=== PATIENT | female | born 1965 | race African-American/Black ===

== ENCOUNTER 2016-05-20 23:56 | Observation (INO) | payer OTHER ==
[~2016-05-20] VITALS: Ht 177.8 cm; Wt 148.1 kg
[~2016-05-20 23:56] MED LIST: AMLODIPINE BESY10 MG PO; ASPIR-LOW81 MG PO; CITALOPRAM HBR20 MG PO; CYCLOBENZAPRINE10 MG PO; IBUPROFEN600 MG PO; LISINOPRIL40 MG PO; METOPROLOL SUC100 MG PO; NITROSTAT0.4 MG SL; OXYCODONE HCL10 MG PO; PROTONIX40 MG PO; RISPERDAL1 MG PO; TRAZODONE HCL150 MG PO; VOLTAREN50 MG PO
[2016-05-21 01:33] LABS: HEMATOCRIT 38.2 % (36.0-46.0); MCHC 32.5 G/DL (30.0-36.0); MCV 89.3 FL (83-99); MEAN PLAT.VOLUME 11.2 uM^3 (9.5-12.4); PLATELET COUNT 224 K/uL (156-360); RBC DIS.WIDTH-SD 42.5 % (39-53); RED BLOOD COUNT 4.28 M/uL (3.80-5.20); WHITE BLOOD COUNT 6.2 K/uL (4.1-10.2)
[2016-05-21 01:44] LABS: CHLORIDE 107 mEq/L (99-109); POTASSIUM 3.8 mEq/L (3.7-5.4); SODIUM 141 mEq/L (136-147)
[2016-05-21 01:45] LABS: GLUCOSE 90 mg/dL (70-99)
[2016-05-21 01:47] LABS: ANION GAP 10 MEQ/L (2-14)
[2016-05-21 01:49] LABS: GFR ESTIMATE (CALCULATED) > 59 mL/min/
[2016-05-21 01:50] LABS: UREA NITROGEN (BUN) 13 mg/dL (9-23)
[2016-05-21 01:55] LABS: TROP-I INTERPRETATION NEGATIVE; TROPONIN-I < 0.01 ng/mL (0.0-0.30)
[2016-05-21 07:10] VITALS: BP 109/70
[2016-05-21 10:11] LABS: Estimated Average Glucose 94 mg/dL (70-123); HEMOGLOBIN A1c (GLYCOHEMOGLOB) 4.9 % HGB (Below 5.7)
[2016-05-21 10:18] LABS: TROP-I INTERPRETATION NEGATIVE; TROPONIN-I < 0.01 ng/mL (0.0-0.30)
[2016-05-21 10:30] LABS: HDL CHOLESTEROL 43 MG/DL (Desirable>=50); LDL CHOLESTEROL 91 mg/dL (Desirable<100); NON-HDL CHOLESTEROL 102 mg/dL (Desirable<160); TOTAL CHOLESTEROL 145 mg/dL (Desirable<200); TRIGLYCERIDES 57 MG/DL (Normal: <150)
[2016-05-21] MEDS ORDERED: GABAPENTIN400 MG PO (11:08)
[2016-05-21] MEDS ORDERED: PANTOPRAZOLE SO40 MG PO (11:08)
[2016-05-21] MEDS ORDERED: OXYCODONE HCL10 MG PO (11:10)
[2016-05-21] MEDS ORDERED: LIDOCAINE HCL35 GM TP (11:11)
[2016-05-21 12:09] VITALS: BP 107/59
[2016-05-21] MEDS ORDERED: ASPIR-LOW81 MG PO (14:29)
[2016-05-21] MEDS ORDERED: IMDUR30 MG PO (14:29)
[2016-05-21] MEDS ORDERED: PRAVASTATIN SOD40 MG PO (14:29)
[2016-05-21 14:32] LABS: TROP-I INTERPRETATION NEGATIVE; TROPONIN-I < 0.01 ng/mL (0.0-0.30)
== END 2016-05-21 15:41 | disposition home or self-care (01) ==
LOC: EME → EDBD 23:56 → EME 23:56 → EDOF 05-21 05:17 → 5WEST 05-21 06:51
PROVIDERS: Internal Medicine
DX: R07.89 Other chest pain (principal); I25.10 Atherosclerotic heart disease of native coronary artery without angina pectoris; I25.2 Old myocardial infarction; I10 Essential (primary) hypertension; E66.01 Morbid (severe) obesity due to excess calories; G89.29 Other chronic pain; M54.9 Dorsalgia, unspecified; Z91.19 Patient's noncompliance with other medical treatment and regimen; M19.90 Unspecified osteoarthritis, unspecified site; Z68.42 Body mass index [BMI] 45.0-49.9, adult
CPT/HCPCS: 71020; 80048; 80061; 83036; 84484; 85027; 93005; 99281; 99285; G0378; J1644; J2270; J7030

== ENCOUNTER 2016-06-08 20:19 | Emergency (ER) | payer OTHER ==
[~2016-06-08] VITALS: Ht 177.8 cm; Wt 143.2 kg
[~2016-06-08 20:19] MED LIST changes: +GABAPENTIN400 MG PO; +IMDUR30 MG PO; +LIDOCAINE HCL35 GM TP; +PANTOPRAZOLE SO40 MG PO; +PRAVASTATIN SOD40 MG PO
[2016-06-09] MEDS ORDERED: PATANOL OP100 DROP/5 RIGHT EYE (00:07)
[2016-06-09] MEDS ORDERED: CIPROFLOXACIN H10 ML RIGHT EYE (00:08)
[2016-06-09 00:14] VITALS: BP 128/89
== END 2016-06-09 00:23 | disposition home or self-care (01) ==
LOC: EME 20:19 → EXP 20:19
DX: H10.9 Unspecified conjunctivitis (principal); I10 Essential (primary) hypertension; J45.909 Unspecified asthma, uncomplicated
CPT/HCPCS: 99281; 99284

== ENCOUNTER 2016-07-17 15:32 | Observation (INO) | payer OTHER ==
[~2016-07-17] VITALS: Ht 177.8 cm; Wt 143.3 kg
[~2016-07-17 15:32] MED LIST changes: +CIPROFLOXACIN H10 ML RIGHT EYE; +PATANOL OP100 DROP/5 RIGHT EYE
[2016-07-17 16:51] LABS: HEMATOCRIT 41.7 % (36.0-46.0); MCHC 32.6 G/DL (30.0-36.0); MCV 88.9 FL (83-99); MEAN PLAT.VOLUME 10.3 uM^3 (9.5-12.4); PLATELET COUNT 270 K/uL (156-360); RBC DIS.WIDTH-CV 12.7 % (11.8-14.6); RBC DIS.WIDTH-SD 41.8 % (39-53); RED BLOOD COUNT 4.69 M/uL (3.80-5.20); WHITE BLOOD COUNT 5.6 K/uL (4.1-10.2)
[2016-07-17 17:00] LABS: CHLORIDE 107 mEq/L (99-109); POTASSIUM 3.7 mEq/L (3.7-5.4); SODIUM 142 mEq/L (136-147)
[2016-07-17 17:01] LABS: GLUCOSE 83 mg/dL (70-99)
[2016-07-17 17:03] LABS: ANION GAP 12 MEQ/L (2-14)
[2016-07-17 17:05] LABS: GFR ESTIMATE (CALCULATED) > 59 mL/min/
[2016-07-17 17:06] LABS: UREA NITROGEN (BUN) 8 mg/dL (9-23)
[2016-07-17 17:11] LABS: TROP-I INTERPRETATION NEGATIVE; TROPONIN-I < 0.01 ng/mL (0.0-0.30)
[2016-07-17 18:25] LABS: D-DIMER ELISA 0.79 mg/L FEU (< 0.57)
[2016-07-17] MEDS ORDERED: ADULT LOW DOSE81 M1 PO (19:28)
[2016-07-17 21:56] VITALS: BP 137/91
[2016-07-17 23:43] VITALS: BP 138/86
[2016-07-18 00:05] LABS: TROP-I INTERPRETATION NEGATIVE; TROPONIN-I < 0.01 ng/mL (0.0-0.30)
[2016-07-18 05:04] VITALS: BP 130/80
[2016-07-18 05:56] LABS: HEMATOCRIT 34.8 % (36.0-46.0); MCH 29.1 PG (29.0-34.0); MCHC 32.5 G/DL (30.0-36.0); MCV 89.7 FL (83-99); MEAN PLAT.VOLUME 10.4 uM^3 (9.5-12.4); PLATELET COUNT 217 K/uL (156-360); RBC DIS.WIDTH-CV 12.9 % (11.8-14.6); RED BLOOD COUNT 3.88 M/uL (3.80-5.20); WHITE BLOOD COUNT 4.6 K/uL (4.1-10.2)
[2016-07-18 06:25] LABS: TROP-I INTERPRETATION NEGATIVE; TROPONIN-I < 0.01 ng/mL (0.0-0.30)
[2016-07-18 06:45] LABS: CHLORIDE 108 MEQ/L (99-109); GFR ESTIMATE (CALCULATED) > 59 mL/min/; GLUCOSE 83 mg/dL (70-99); POTASSIUM 3.8 MEQ/L (3.7-5.4); SODIUM 141 MEQ/L (136-147); UREA NITROGEN (BUN) 9 mg/dL (9-23)
[2016-07-18 06:46] LABS: ALKALINE PHOSPHATASE 80 IU/L (3-129); ANION GAP 10 MEQ/L (2-14); SAMPLE HEMOLYSIS CHECK 0; SAMPLE ICTERIC CHECK 0; SAMPLE LIPEMIA CHECK 0
[2016-07-18 07:37] VITALS: BP 127/84
[2016-07-18 10:14] VITALS: BP 98/58
== END 2016-07-18 11:25 | disposition home or self-care (01) ==
LOC: EME 15:32 → EDOF 20:01 → 5WEST 20:01
PROVIDERS: Emergency Medicine; Internal Medicine
DX: R07.9 Chest pain, unspecified (principal); I10 Essential (primary) hypertension; I25.10 Atherosclerotic heart disease of native coronary artery without angina pectoris; E66.01 Morbid (severe) obesity due to excess calories; Z68.42 Body mass index [BMI] 45.0-49.9, adult; E11.9 Type 2 diabetes mellitus without complications; R94.31 Abnormal electrocardiogram [ECG] [EKG]; R06.02 Shortness of breath; M79.602 Pain in left arm; I25.2 Old myocardial infarction; K21.9 Gastro-esophageal reflux disease without esophagitis; F31.9 Bipolar disorder, unspecified; J45.909 Unspecified asthma, uncomplicated; R74.8 Abnormal levels of other serum enzymes; G89.29 Other chronic pain; M54.9 Dorsalgia, unspecified; Z79.4 Long term (current) use of insulin; E78.00 Pure hypercholesterolemia, unspecified
CPT/HCPCS: 71020; 71275; 80048; 80053; 84484; 85027; 85379; 93005; 99281; 99285; G0378; J1644

== ENCOUNTER 2016-08-27 00:22 | Inpatient (IN) | payer OTHER ==
[~2016-08-27] VITALS: Ht 177.8 cm; Wt 145.1 kg
[~2016-08-27 00:22] MED LIST changes: +ADULT LOW DOSE81 M1 PO
[2016-08-27 01:17] LABS: HEMATOCRIT 38.7 % (36.0-46.0); MCH 29.3 PG (29.0-34.0); MCHC 32.8 G/DL (30.0-36.0); MCV 89.4 FL (83-99); MEAN PLAT.VOLUME 10.5 uM^3 (9.5-12.4); PLATELET COUNT 236 K/uL (156-360); RBC DIS.WIDTH-CV 12.7 % (11.8-14.6); RBC DIS.WIDTH-SD 41.9 % (39-53); RED BLOOD COUNT 4.33 M/uL (3.80-5.20); WHITE BLOOD COUNT 7.4 K/uL (4.1-10.2)
[2016-08-27 01:30] LABS: CHLORIDE 110 mEq/L (99-109); SODIUM 141 mEq/L (136-147)
[2016-08-27 01:31] LABS: GLUCOSE 87 mg/dL (70-99)
[2016-08-27 01:33] LABS: ANION GAP 11 MEQ/L (2-14); D-DIMER ELISA 1.08 mg/L FEU (< 0.57); INTER. NORMALIZED RATIO 1.1; PROTHROMBIN TIME 10.8 (9.2-11.2); PTT 27.5 (25-32)
[2016-08-27 01:35] LABS: GFR ESTIMATE (CALCULATED) > 59 mL/min/
[2016-08-27 01:36] LABS: UREA NITROGEN (BUN) 10 mg/dL (9-23)
[2016-08-27 01:37] LABS: POTASSIUM 4.9 mEq/L (3.7-5.4)
[2016-08-27 01:40] LABS: TROP-I INTERPRETATION NEGATIVE; TROPONIN-I < 0.01 ng/mL (0.0-0.30)
[2016-08-27 07:18] VITALS: BP 117/69
[2016-08-27 09:42] LABS: TROP-I INTERPRETATION NEGATIVE; TROPONIN-I < 0.01 ng/mL (0.0-0.30)
[2016-08-27 13:00] VITALS: BP 113/77
[2016-08-27 15:11] LABS: TROP-I INTERPRETATION NEGATIVE; TROPONIN-I < 0.01 ng/mL (0.0-0.30)
[2016-08-27] MEDS ORDERED: ZOLOFT50 MG PO (17:07)
[2016-08-27 17:08] VITALS: BP 103/64
[2016-08-27 19:16] VITALS: BP 119/79
[2016-08-27 23:51] VITALS: BP 117/76
[2016-08-28 03:33] VITALS: BP 116/73
[2016-08-28 06:37] LABS: EOSINOPHIL (%) 3.2 % (0-5); EOSINOPHIL COUNT 0.2 K/uL (0-0.3); HEMATOCRIT 36.5 % (36.0-46.0); IMMATURE GRANULOCYTE (%) 0.4 % (0.0-0.7); INSTRUMENT ABS NEUTROPHIL CT 2.5 K/uL; LYMPHOCYTE COUNT 1.9 K/uL (1.0-2.8); MCH 28.9 PG (29.0-34.0); MCHC 32.3 G/DL (30.0-36.0); MCV 89.5 FL (83-99); MEAN PLAT.VOLUME 10.6 uM^3 (9.5-12.4); MONOCYTE (%) 9.9 % (3-12); MONOCYTE COUNT 0.5 K/uL (0-0.8); NEUTROPHIL (%) 49.1 % (45-76); NEUTROPHIL COUNT 2.5 K/uL (1.8-6.4); PLATELET COUNT 214 K/uL (156-360); RBC DIS.WIDTH-CV 13.1 % (11.8-14.6); RBC DIS.WIDTH-SD 42.9 % (39-53); RED BLOOD COUNT 4.08 M/uL (3.80-5.20); WHITE BLOOD COUNT 5.1 K/uL (4.1-10.2)
[2016-08-28 07:21] LABS: ANION GAP 7 MEQ/L (2-14); CHLORIDE 109 MEQ/L (99-109); GFR ESTIMATE (CALCULATED) > 59 mL/min/; GLUCOSE 98 mg/dL (70-99); SAMPLE HEMOLYSIS CHECK 0; SAMPLE ICTERIC CHECK 0; SAMPLE LIPEMIA CHECK 0; SODIUM 141 MEQ/L (136-147); UREA NITROGEN (BUN) 10 mg/dL (9-23)
[2016-08-28 07:22] LABS: POTASSIUM 3.7 MEQ/L (3.7-5.4)
[2016-08-28 07:41] VITALS: BP 125/72
[2016-08-28] MEDS ORDERED: FLEXERIL5 MG PO (13:01)
[2016-08-28 13:04] VITALS: BP 127/81
[2016-08-28] MEDS ORDERED: ATORVASTATIN CA80 MG PO (15:01)
[2016-08-28] MEDS ORDERED: NITROSTAT0.4 MG SL (15:01)
[2016-08-28] MEDS ORDERED: METOPROLOL TART25 MG PO (15:02)
[2016-08-28 16:05] VITALS: BP 117/76
[2016-08-28 21:00] VITALS: BP 121/79
[2016-08-28 23:52] VITALS: BP 110/78
[2016-08-29 04:02] VITALS: BP 116/78
[2016-08-29 07:18] VITALS: BP 120/78
[2016-08-29 07:49] LABS: HEMATOCRIT 35.5 % (36.0-46.0); MCH 29.6 PG (29.0-34.0); MCV 89.9 FL (83-99); PLATELET COUNT 205 K/uL (156-360); RBC DIS.WIDTH-CV 12.9 % (11.8-14.6); RBC DIS.WIDTH-SD 42.5 % (39-53); RED BLOOD COUNT 3.95 M/uL (3.80-5.20); WHITE BLOOD COUNT 4.9 K/uL (4.1-10.2)
[2016-08-29 08:13] LABS: ANION GAP 8 MEQ/L (2-14); CHLORIDE 108 MEQ/L (99-109); GFR ESTIMATE (CALCULATED) > 59 mL/min/; GLUCOSE 78 mg/dL (70-99); POTASSIUM 3.8 MEQ/L (3.7-5.4); SAMPLE HEMOLYSIS CHECK 0; SAMPLE ICTERIC CHECK 0; SAMPLE LIPEMIA CHECK 0; SODIUM 141 MEQ/L (136-147); UREA NITROGEN (BUN) 10 mg/dL (9-23)
[2016-08-29 11:40] VITALS: BP 130/71
[2016-08-29 16:40] VITALS: BP 129/84
[2016-08-29 19:00] VITALS: BP 137/81
[2016-08-29 23:04] VITALS: BP 117/73
[2016-08-30 03:36] VITALS: BP 119/79
[2016-08-30 07:58] VITALS: BP 135/79
[2016-08-30 11:56] VITALS: BP 136/82
== END 2016-08-30 12:09 | disposition home or self-care (01) | DRG 313 ==
LOC: EME → EDBD 00:22 → EDOF 05:36 → 5WEST 05:36 → EDOF 05:36 → 5WEST 07:08 → 2EAST 08-28 18:28 → 5WEST 08-28 18:28 → 2EAST 08-29 16:28
PROVIDERS: Emergency Medicine; Family Medicine; Internal Medicine; Physician Assistant Medical
PROC: 0DJ08ZZ Inspection of Upper Intestinal Tract, Via Natural or Artificial Opening Endoscopic (ICD-10-PCS; principal; 2016-08-29)
DX: R07.89 Other chest pain (principal); K21.0 Gastro-esophageal reflux disease with esophagitis; F41.9 Anxiety disorder, unspecified; I25.10 Atherosclerotic heart disease of native coronary artery without angina pectoris; Z68.42 Body mass index [BMI] 45.0-49.9, adult; I10 Essential (primary) hypertension; R13.10 Dysphagia, unspecified; E66.01 Morbid (severe) obesity due to excess calories; E78.5 Hyperlipidemia, unspecified; K76.9 Liver disease, unspecified; F31.9 Bipolar disorder, unspecified; Z82.49 Family history of ischemic heart disease and other diseases of the circulatory system; Z72.0 Tobacco use; Z79.899 Other long term (current) drug therapy; Z79.82 Long term (current) use of aspirin; I25.2 Old myocardial infarction
CPT/HCPCS: 71020; 71275; 78582; 80048; 84484; 85025; 85027; 85379; 85610; 85730; 93005; 99281; 99285; A9540; A9567; G0378; J1650; J2250; J2270; J3010

== ENCOUNTER 2016-11-11 13:18 | Emergency (ER) | payer OTHER ==
[~2016-11-11] VITALS: Ht 152.4 cm; Wt 142.0 kg
[~2016-11-11 13:18] MED LIST changes: +ATORVASTATIN CA80 MG PO; +FLEXERIL5 MG PO; +METOPROLOL TART25 MG PO; +ZOLOFT50 MG PO
[2016-11-11 13:49] LABS: EOSINOPHIL (%) 2.5 % (0-5); EOSINOPHIL COUNT 0.1 K/uL (0-0.3); HEMATOCRIT 37.5 % (36.0-46.0); IMMATURE GRANULOCYTE (%) 0.4 % (0.0-0.7); LYMPHOCYTE COUNT 1.6 K/uL (1.0-2.8); MCH 28.6 PG (29.0-34.0); MCV 89.5 FL (83-99); MEAN PLAT.VOLUME 10.3 uM^3 (9.5-12.4); MONOCYTE (%) 7.8 % (3-12); MONOCYTE COUNT 0.4 K/uL (0-0.8); NEUTROPHIL (%) 57.9 % (45-76); PLATELET COUNT 237 K/uL (156-360); RBC DIS.WIDTH-SD 42.3 % (39-53); RED BLOOD COUNT 4.19 M/uL (3.80-5.20); WHITE BLOOD COUNT 5.3 K/uL (4.1-10.2)
[2016-11-11 13:58] LABS: CHLORIDE 109 mEq/L (99-109); POTASSIUM 3.7 mEq/L (3.7-5.4); SODIUM 140 mEq/L (136-147)
[2016-11-11 13:59] LABS: GLUCOSE 99 mg/dL (70-99)
[2016-11-11 14:01] LABS: ANION GAP 7 MEQ/L (2-14)
[2016-11-11 14:03] LABS: GFR ESTIMATE (CALCULATED) > 59 mL/min/
[2016-11-11 14:04] LABS: UREA NITROGEN (BUN) 16 mg/dL (9-23)
[2016-11-11 14:09] LABS: TROP-I INTERPRETATION NEGATIVE; TROPONIN-I < 0.01 ng/mL (0.0-0.30)
[2016-11-11 16:39] LABS: TROP-I INTERPRETATION NEGATIVE; TROPONIN-I < 0.01 ng/mL (0.0-0.30)
[2016-11-11] MEDS ORDERED: TYLENOL WITH C1 EACH PO (17:36)
[2016-11-11 17:52] VITALS: BP 120/82
== END 2016-11-11 17:53 | disposition home or self-care (01) ==
LOC: EME 13:18
PROVIDERS: Emergency Medicine
DX: R07.89 Other chest pain (principal); M79.1 Myalgia; I10 Essential (primary) hypertension; K21.9 Gastro-esophageal reflux disease without esophagitis; I25.2 Old myocardial infarction
CPT/HCPCS: 71010; 71275; 80048; 84484; 85025; 93005; 99281; 99285; J1885; J2270

== ENCOUNTER 2016-11-24 17:54 | Emergency (ER) | payer OTHER ==
[~2016-11-24] VITALS: Ht 177.8 cm; Wt 143.9 kg
[~2016-11-24 17:54] MED LIST changes: +TYLENOL WITH C1 EACH PO
[2016-11-24 19:40] LABS: HEMATOCRIT 36.8 % (36.0-46.0); MCH 28.7 PG (29.0-34.0); MCHC 32.1 G/DL (30.0-36.0); MCV 89.5 FL (83-99); MEAN PLAT.VOLUME 10.4 uM^3 (9.5-12.4); PLATELET COUNT 220 K/uL (156-360); RBC DIS.WIDTH-CV 13.1 % (11.8-14.6); RBC DIS.WIDTH-SD 43.3 % (39-53); RED BLOOD COUNT 4.11 M/uL (3.80-5.20); WHITE BLOOD COUNT 5.8 K/uL (4.1-10.2)
[2016-11-24 19:51] LABS: CHLORIDE 108 mEq/L (99-109); SODIUM 142 mEq/L (136-147)
[2016-11-24 19:52] LABS: GLUCOSE 91 mg/dL (70-99)
[2016-11-24 19:54] LABS: ANION GAP 9 MEQ/L (2-14)
[2016-11-24 19:56] LABS: GFR ESTIMATE (CALCULATED) > 59 mL/min/
[2016-11-24 19:57] LABS: UREA NITROGEN (BUN) 14 mg/dL (9-23)
[2016-11-24 20:33] VITALS: BP 137/91
== END 2016-11-24 20:34 | disposition home or self-care (01) ==
LOC: EME 17:54
PROVIDERS: Emergency Medicine
DX: S63.501A Unspecified sprain of right wrist, initial encounter (principal); X58.XXXA Exposure to other specified factors, initial encounter; F17.200 Nicotine dependence, unspecified, uncomplicated
CPT/HCPCS: 73110; 80048; 85027; 99281; 99283

== ENCOUNTER 2017-01-19 07:09 | Observation (INO) | payer OTHER ==
[~2017-01-19] VITALS: Ht 177.8 cm; Wt 137.8 kg
[2017-01-19 07:44] LABS: HEMATOCRIT 37.6 % (36.0-46.0); MCH 28.8 PG (29.0-34.0); MCHC 32.7 G/DL (30.0-36.0); MCV 88.1 FL (83-99); MEAN PLAT.VOLUME 10.5 uM^3 (9.5-12.4); PLATELET COUNT 247 K/uL (156-360); RBC DIS.WIDTH-CV 13.1 % (11.8-14.6); RBC DIS.WIDTH-SD 42.1 % (39-53); RED BLOOD COUNT 4.27 M/uL (3.80-5.20); WHITE BLOOD COUNT 7.2 K/uL (4.1-10.2)
[2017-01-19 08:09] LABS: ANION GAP 8 MEQ/L (2-14); CHLORIDE 106 MEQ/L (99-109); POTASSIUM 3.5 MEQ/L (3.7-5.4); SAMPLE HEMOLYSIS CHECK 0; SAMPLE ICTERIC CHECK 0; SAMPLE LIPEMIA CHECK 0; SODIUM 140 MEQ/L (136-147); TROP-I INTERPRETATION NEGATIVE; TROPONIN-I < 0.01 ng/mL (0.0-0.30)
[2017-01-19 08:14] LABS: GFR ESTIMATE (CALCULATED) > 59 mL/min/; GLUCOSE 89 mg/dL (70-99); UREA NITROGEN (BUN) 14 mg/dL (9-23)
[2017-01-19 10:38] LABS: ADD MIUA? YES; BILIRUBIN NEGATIVE; BLOOD NEGATIVE; COLOR YELLOW ((YELLOW)); GLUCOSE (STRIP) NEGATIVE; KETONES NEGATIVE; LEUKOCYTES NEGATIVE; NITRITE NEGATIVE; PROTEIN (STRIP) 30; SPECIFIC GRAVITY 1.032 (1.000-1.030)
[2017-01-19 10:42] LABS: BACTERIA NONE SEEN /HPF; EPITHELIAL CELLS RARE /HPF; MUCUS 1+ /LPF; RED BLOOD CELLS 0-5 /HPF (0-5)
[2017-01-19] MEDS ORDERED: MORPHINE SULFAT15 M1 PO (11:28)
[2017-01-19] MEDS ORDERED: CYCLOBENZAPRINE5 MG PO (11:28)
[2017-01-19 12:46] VITALS: BP 116/81
[2017-01-19 13:26] LABS: HDL CHOLESTEROL 46 MG/DL (Desirable>=50); LDL CHOLESTEROL 66 mg/dL (Desirable<100); NON-HDL CHOLESTEROL 91 mg/dL (Desirable<160); TOTAL CHOLESTEROL 137 mg/dL (Desirable<200); TRIGLYCERIDES 123 MG/DL (Normal: <150)
[2017-01-19 14:35] LABS: TROP-I INTERPRETATION NEGATIVE; TROPONIN-I < 0.01 ng/mL (0.0-0.30)
[2017-01-19 15:55] VITALS: BP 101/67
[2017-01-19 19:22] VITALS: BP 94/66
[2017-01-19 20:11] LABS: TROP-I INTERPRETATION NEGATIVE; TROPONIN-I < 0.01 ng/mL (0.0-0.30)
[2017-01-20 00:45] VITALS: BP 114/70
[2017-01-20 04:24] VITALS: BP 132/64
[2017-01-20 08:25] VITALS: BP 117/78
[2017-01-20] MEDS ORDERED: ATORVASTATIN CA40 MG PO (08:42)
[2017-01-20] MEDS ORDERED: PANTOPRAZOLE SO40 MG PO (08:42)
== END 2017-01-20 10:39 | disposition home or self-care (01) ==
LOC: EME 07:09 → EDOF 10:45 → ENRESERV 10:48 → EDOF 11:18 → 5WEST 11:43 → ENPENDDIS 01-20 08:47 → 5WEST 01-20 10:39
PROVIDERS: Hospitalist; Nurse Practitioner Family
DX: R07.89 Other chest pain (principal); K21.9 Gastro-esophageal reflux disease without esophagitis; R06.02 Shortness of breath; I10 Essential (primary) hypertension; E78.5 Hyperlipidemia, unspecified; E66.01 Morbid (severe) obesity due to excess calories; I95.9 Hypotension, unspecified; R61 Generalized hyperhidrosis; F41.9 Anxiety disorder, unspecified; F32.9 Major depressive disorder, single episode, unspecified; Z90.49 Acquired absence of other specified parts of digestive tract; Z96.659 Presence of unspecified artificial knee joint; Z82.49 Family history of ischemic heart disease and other diseases of the circulatory system; Z83.3 Family history of diabetes mellitus; Z80.3 Family history of malignant neoplasm of breast; Z88.2 Allergy status to sulfonamides
CPT/HCPCS: 71020; 71275; 80048; 80061; 81003; 83605; 83880; 84484; 85027; 93005; 99281; 99285; C9113; G0378; J1650; J2270; J7030

== ENCOUNTER 2017-02-16 17:04 | Emergency (ER) | payer OTHER ==
[~2017-02-16] VITALS: Ht 177.8 cm; Wt 136.3 kg
[~2017-02-16 17:04] MED LIST changes: +ATORVASTATIN CA40 MG PO; +CYCLOBENZAPRINE5 MG PO; +MORPHINE SULFAT15 M1 PO
[2017-02-16] MEDS ORDERED: MOTRIN600 MG PO (22:47)
[2017-02-16 23:22] VITALS: BP 141/98
== END 2017-02-16 23:23 | disposition home or self-care (01) ==
LOC: EME 17:04
DX: M65.4 Radial styloid tenosynovitis [de Quervain] (principal); I10 Essential (primary) hypertension; Z88.2 Allergy status to sulfonamides; Z88.8 Allergy status to other drugs, medicaments and biological substances
CPT/HCPCS: 73130; 99281; 99284

== ENCOUNTER 2017-03-10 00:06 | Emergency (ER) | payer OTHER ==
[~2017-03-10] VITALS: Ht 177.8 cm; Wt 135.9 kg
[~2017-03-10 00:06] MED LIST changes: +MOTRIN600 MG PO
[2017-03-10 01:05] LABS: HEMATOCRIT 38.6 % (36.0-46.0); HEMOGLOBIN 12.7 G/DL (11.9-15.5); MCH 28.9 PG (29.0-34.0); MCHC 32.9 G/DL (30.0-36.0); MCV 87.7 FL (83-99); PLATELET COUNT 229 K/uL (156-360); RBC DIS.WIDTH-CV 13.3 % (11.8-14.6); RBC DIS.WIDTH-SD 43.4 % (39-53); WHITE BLOOD COUNT 7.5 K/uL (4.1-10.2)
[2017-03-10 01:17] LABS: CHLORIDE 109 mEq/L (99-109); POTASSIUM 3.4 mEq/L (3.7-5.4); SODIUM 142 mEq/L (136-147)
[2017-03-10 01:18] LABS: GLUCOSE 101 mg/dL (70-99)
[2017-03-10 01:19] LABS: INTER. NORMALIZED RATIO 1.1
[2017-03-10 01:21] LABS: PTT 28.5 SEC (25-37)
[2017-03-10 01:22] LABS: CREATININE 0.9 mg/dL (0.6-1.3); GFR ESTIMATE (CALCULATED) > 59 mL/min/
[2017-03-10 01:23] LABS: UREA NITROGEN (BUN) 9 mg/dL (9-23)
[2017-03-10 01:31] LABS: TROP-I INTERPRETATION NEGATIVE; TROPONIN-I < 0.01 ng/mL (0.0-0.30)
[2017-03-10 02:46] LABS: TROP-I INTERPRETATION NEGATIVE; TROPONIN-I < 0.01 ng/mL (0.0-0.30)
[2017-03-10 02:59] VITALS: BP 119/98
== END 2017-03-10 03:03 | disposition home or self-care (01) ==
LOC: EME → EDBD 00:06 → EME 03:03
PROVIDERS: Emergency Medicine
DX: R07.9 Chest pain, unspecified (principal); I10 Essential (primary) hypertension; I25.2 Old myocardial infarction; K21.9 Gastro-esophageal reflux disease without esophagitis; F32.9 Major depressive disorder, single episode, unspecified; F41.9 Anxiety disorder, unspecified; Z96.653 Presence of artificial knee joint, bilateral
CPT/HCPCS: 71046; 80048; 84484; 85027; 85610; 85730; 93005

== ENCOUNTER 2017-06-01 22:22 | Emergency (ER) | payer OTHER ==
[~2017-06-01] VITALS: Ht 177.8 cm; Wt 132.4 kg
[2017-06-01 22:50] LABS: HEMATOCRIT 36.3 % (36.0-46.0); HEMOGLOBIN 12.1 G/DL (11.9-15.5); MCH 29.2 PG (29.0-34.0); MCHC 33.3 G/DL (30.0-36.0); MCV 87.7 FL (83-99); PLATELET COUNT 171 K/uL (156-360); RBC DIS.WIDTH-CV 13.7 % (11.8-14.6); RBC DIS.WIDTH-SD 44.4 % (39-53); RED BLOOD COUNT 4.14 M/uL (3.80-5.20)
[2017-06-01 23:03] LABS: CHLORIDE 108 mEq/L (99-109); POTASSIUM 3.1 mEq/L (3.7-5.4); SODIUM 141 mEq/L (136-147)
[2017-06-01 23:04] LABS: GLUCOSE 93 mg/dL (70-99)
[2017-06-01 23:08] LABS: GFR ESTIMATE (CALCULATED) > 59 mL/min/
[2017-06-01 23:09] LABS: UREA NITROGEN (BUN) 14 mg/dL (9-23)
[2017-06-01 23:14] LABS: TROP-I INTERPRETATION NEGATIVE; TROPONIN-I < 0.01 ng/mL (0.0-0.30)
[2017-06-02 02:03] LABS: TROP-I INTERPRETATION NEGATIVE; TROPONIN-I < 0.01 ng/mL (0.0-0.30)
[2017-06-02] MEDS ORDERED: MOTRIN600 MG PO (02:18)
[2017-06-02 02:28] VITALS: BP 152/93
== END 2017-06-02 02:28 | disposition home or self-care (01) ==
LOC: EME 22:22
PROVIDERS: Physician Assistant
DX: R07.89 Other chest pain (principal); I10 Essential (primary) hypertension; K21.9 Gastro-esophageal reflux disease without esophagitis; I25.2 Old myocardial infarction; F31.9 Bipolar disorder, unspecified; F41.9 Anxiety disorder, unspecified; F32.9 Major depressive disorder, single episode, unspecified; Z87.442 Personal history of urinary calculi; Z90.49 Acquired absence of other specified parts of digestive tract; Z88.2 Allergy status to sulfonamides
CPT/HCPCS: 71046; 80048; 84484; 85027; 93005; 99281; 99285; J1885

== ENCOUNTER 2017-07-21 23:31 | Observation (INO) | payer OTHER ==
[~2017-07-21] VITALS: Ht 177.8 cm; Wt 137.0 kg
[2017-07-22 00:09] LABS: HEMATOCRIT 35.5 % (36.0-46.0); HEMOGLOBIN 11.8 G/DL (11.9-15.5); MCH 29.4 PG (29.0-34.0); MCHC 33.2 G/DL (30.0-36.0); MCV 88.5 FL (83-99); PLATELET COUNT 228 K/uL (156-360); RBC DIS.WIDTH-CV 13.2 % (11.8-14.6); RBC DIS.WIDTH-SD 42.9 % (39-53); RED BLOOD COUNT 4.01 M/uL (3.80-5.20); WHITE BLOOD COUNT 8.1 K/uL (4.1-10.2)
[2017-07-22 00:19] LABS: CHLORIDE 107 mEq/L (99-109); SODIUM 141 mEq/L (136-147)
[2017-07-22 00:21] LABS: GLUCOSE 82 mg/dL (70-99)
[2017-07-22 00:25] LABS: CREATININE 0.8 mg/dL (0.6-1.3); GFR ESTIMATE (CALCULATED) > 59 mL/min/
[2017-07-22 00:26] LABS: UREA NITROGEN (BUN) 12 mg/dL (9-23)
[2017-07-22 00:33] LABS: TROP-I INTERPRETATION NEGATIVE; TROPONIN-I < 0.01 ng/mL (0.0-0.30)
[2017-07-22 06:18] VITALS: BP 152/99
[2017-07-22 06:44] LABS: TROP-I INTERPRETATION NEGATIVE; TROPONIN-I < 0.01 ng/mL (0.0-0.30)
[2017-07-22 08:27] VITALS: BP 138/91
[2017-07-22 11:33] VITALS: BP 127/78
[2017-07-22 12:36] LABS: TROP-I INTERPRETATION NEGATIVE; TROPONIN-I < 0.01 ng/mL (0.0-0.30)
[2017-07-22] MEDS ORDERED: PANTOPRAZOLE SO40 MG PO (15:12)
[2017-07-22] MEDS ORDERED: BUSPAR15 MG PO (15:13)
[2017-07-22] MEDS ORDERED: LISINOPRIL40 MG PO (15:13)
[2017-07-22 15:31] VITALS: BP 133/68
== END 2017-07-22 17:25 | disposition home or self-care (01) ==
LOC: EME 23:31 → EDOF 07-22 04:40 → ENRESERV 07-22 04:42 → 4SOUTH 07-22 06:02
PROVIDERS: Emergency Medicine; Nurse Practitioner Adult Health
DX: R07.89 Other chest pain (principal); R11.0 Nausea; R42 Dizziness and giddiness; I10 Essential (primary) hypertension; E78.5 Hyperlipidemia, unspecified; K21.9 Gastro-esophageal reflux disease without esophagitis; F41.9 Anxiety disorder, unspecified; F32.9 Major depressive disorder, single episode, unspecified; Z90.49 Acquired absence of other specified parts of digestive tract; Z90.710 Acquired absence of both cervix and uterus; Z82.49 Family history of ischemic heart disease and other diseases of the circulatory system; Z83.3 Family history of diabetes mellitus; Z79.82 Long term (current) use of aspirin; Z88.2 Allergy status to sulfonamides
CPT/HCPCS: 71046; 71275; 80048; 84484; 85027; 85379; 93005; 99281; 99285; G0378; J1885; J7030

== ENCOUNTER 2017-09-26 18:38 | Observation (INO) | payer OTHER ==
[~2017-09-26] VITALS: Ht 177.8 cm; Wt 137.7 kg
[~2017-09-26 18:38] MED LIST changes: +BUSPAR15 MG PO
[2017-09-26 19:35] LABS: HEMATOCRIT 36.2 % (36.0-46.0); HEMOGLOBIN 12.1 G/DL (11.9-15.5); MCH 28.9 PG (29.0-34.0); MCHC 33.4 G/DL (30.0-36.0); MCV 86.4 FL (83-99); PLATELET COUNT 209 K/uL (156-360); RBC DIS.WIDTH-CV 12.9 % (11.8-14.6); RBC DIS.WIDTH-SD 40.5 % (39-53); RED BLOOD COUNT 4.19 M/uL (3.80-5.20); WHITE BLOOD COUNT 6.2 K/uL (4.1-10.2)
[2017-09-26 19:48] LABS: CHLORIDE 105 mEq/L (99-109); POTASSIUM 3.7 mEq/L (3.7-5.4); SODIUM 140 mEq/L (136-147)
[2017-09-26 19:50] LABS: GLUCOSE 88 mg/dL (70-99)
[2017-09-26 19:54] LABS: GFR ESTIMATE (CALCULATED) > 59 mL/min/; UREA NITROGEN (BUN) 8 mg/dL (9-23)
[2017-09-26 20:00] LABS: TROP-I INTERPRETATION NEGATIVE; TROPONIN-I < 0.01 ng/mL (0.0-0.30)
[2017-09-26 21:56] LABS: ALBUMIN 4.1 g/dL (3.2-4.8)
[2017-09-26 21:58] LABS: TOTAL PROTEIN 7.6 g/dL (6.4-8.3)
[2017-09-26 22:00] LABS: TOTAL BILIRUBIN 0.7 mg/dL (0.0-1.0)
[2017-09-26 22:01] LABS: ALKALINE PHOSPHATASE 100 IU/L (3-129)
[2017-09-26 22:04] LABS: ALT (GPT) 10 IU/L (3-49); AST (GOT) 16 IU/L (2-34); DIRECT BILIRUBIN 0.3 mg/dL (0.0-0.3)
[2017-09-26 22:05] LABS: LIPASE 10 U/L (1.0-51.0)
[2017-09-27] MEDS ORDERED: LUVOX50 MG PO (01:03)
[2017-09-27] MEDS ORDERED: CYMBALTA20 MG PO (01:03)
[2017-09-27 03:21] LABS: TROP-I INTERPRETATION NEGATIVE; TROPONIN-I < 0.01 ng/mL (0.0-0.30)
[2017-09-27 04:11] VITALS: BP 120/77
[2017-09-27 08:18] VITALS: BP 119/82
[2017-09-27 09:00] LABS: TROP-I INTERPRETATION NEGATIVE; TROPONIN-I < 0.01 ng/mL (0.0-0.30)
== END 2017-09-27 12:29 | disposition home or self-care (01) ==
LOC: EME 18:38 → EDOF 09-27 02:04 → 4SOUTH 09-27 02:04 → EDOF 09-27 02:04 → ENRESERV 09-27 02:20 → 4SOUTH 09-27 03:40
PROVIDERS: Hospitalist
DX: R07.9 Chest pain, unspecified (principal); G89.4 Chronic pain syndrome; F11.20 Opioid dependence, uncomplicated; I25.10 Atherosclerotic heart disease of native coronary artery without angina pectoris; I25.2 Old myocardial infarction; I10 Essential (primary) hypertension; K21.9 Gastro-esophageal reflux disease without esophagitis; E66.01 Morbid (severe) obesity due to excess calories; Z68.41 Body mass index [BMI] 40.0-44.9, adult; F31.9 Bipolar disorder, unspecified; Z90.710 Acquired absence of both cervix and uterus; Z90.49 Acquired absence of other specified parts of digestive tract; Z87.891 Personal history of nicotine dependence; Z82.49 Family history of ischemic heart disease and other diseases of the circulatory system; Z80.3 Family history of malignant neoplasm of breast; Z82.5 Family history of asthma and other chronic lower respiratory diseases; Z83.3 Family history of diabetes mellitus; Z88.2 Allergy status to sulfonamides
CPT/HCPCS: 71046; 71275; 80048; 80076; 83690; 84484; 85027; 93005; 99281; 99285; G0378; J1650; J1885; J2270